=== PATIENT | male | born 1985 | race Caucasian/White ===

== ENCOUNTER 2019-01-03 21:10 | Emergency (ER) | payer OTHER, SELFPAY ==
[2019-01-03 21:31] VITALS: BP 132/81; PULSE 72; RESP 14; TEMP 36.1; O2SAT 98; BMI 27.3
--- NOTE | 2019-01-03 22:04 | ED_ITS ---
HPI - Recheck/Abnormal Lab/Rx General Chief Complaint: Recheck/Abnormal Lab/Rx Stated Complaint: Rash on arms Time Seen by Provider: 01/03/19 21:32 Source: patient Mode of arrival: ambulatory Limitations: no limitations History of Present Illness HPI narrative: Patient is a 33-year-old male. Has a history of eczema. Normally takes cream prescribed by his provider. 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 [place] provider [place] is the 1 who gives these prescriptions. He states that he did not have access to his prescriptions. Because [place] is [place] station [place]. He came to the emergency department just to have his medications refilled. Related Data Previous Rx's Medication Instructions Recorded mometasone 1 applictn TOP BID 14 Days #45 gram 01/03/19 mometasone 1 applictn TOP BID PRN #60 ml 01/03/19 prednisone 40 mg PO DAILY 7 Days #14 tab 01/03/19 Allergies Allergy/AdvReac Type Severity Reaction Status Date / Time pollen Allergy Severe Anaphylaxis Uncoded 01/03/19 21:33 Review of Systems Eyes Denies itchy eyes ENT Ears, Nose, Mouth, and Throat: Denies throat swelling Cardiovascular Denies dyspnea Respiratory Denies dyspnea Integumentary/Breasts Comments: Eczema rash Hematologic/Lymphatic Denies easy bleeding and Denies easy bruising Allergic/Immunologic Denies urticaria, Denies itchy eyes and Denies throat swelling [facility] Medical History Eczema (Acute) Social History Smoking Status: Never smoker Social History Smoking Status: Never smoker Exam Initial Vital Signs Initial Vital Signs: Vital Signs Temperature 97.0 F L 01/03/19 21:31 Pulse Rate 72 01/03/19 21:31 Respiratory Rate 14 01/03/19 21:31 Blood Pressure 132/81 01/03/19 21:31 Pulse Oximetry 98 01/03/19 21:31 Const General: cooperative, well developed, well groomed and No acute distress Orientation: alert, awake and oriented x3 HENMT Head: normal to inspection and normocephalic Skin Other: Patient with eczema rash on bilateral forearms and in his scalp. He states this is not new. Neuro General: alert and awake Extrem General: No edema Course Vital Signs - 8 hr 01/03/19 21:31 Temperature 97.0 F L Pulse Rate 72 Respiratory Rate 14 Blood Pressure 132/81 Pulse Oximetry 98 MDM - Recheck/Abnormal Lab/Rx MDM Narrative Medical decision making narrative: Refill patient's medications. Patient is given return precautions and follow-up instructions. He expressed understanding and agreement plan Discharge Plan Departure Patient Disposition: Home Clinical Impression: Eczema Qualifiers: Eczema type: unspecified Qualified Code(s): L30.9 - Dermatitis, unspecified Discharge Date/Time: 01/03/19 22:17 Interventions: ED Discharge Assessment Last Done: 01/03/19 22:17 Instructions: Eczema (Alternative Therapy) Activity Restrictions/Additional Instructions: Take medications as directed. Return to the emergency department for any new or worsening symptoms Prescriptions: New prednisone 20 mg tablet 40 mg PO DAILY 7 Days Qty: 14 RF: 0 mometasone 0.1 % ointment 1 applictn TOP BID 14 Days Qty: 45 RF: 0 mometasone 0.1 % solution 1 applictn TOP BID PRN (Reason: rash) Qty: 60 RF: 0
== END 2019-01-03 22:17 | disposition home or self-care (01) ==
PROVIDERS: Emergency Provider Emergency Medicine
DX: L30.9 Dermatitis, unspecified (principal)
CPT/HCPCS: 99282; 99283